=== PATIENT | male | born 1965 | race Caucasian/White ===

== ENCOUNTER 2021-01-27 16:56 | Inpatient (IN) ==
[2021-01-27] MEDS ORDERED: NS 0.9% 1000 ml BAG 1,000 ML IV ONE ×2 (16:57→21:48)
[2021-01-27] MEDS ORDERED: Alteplase (100 mg Vial) 100 mg VIAL ONE (17:03)
[2021-01-27] MEDS ORDERED: Alteplase (100 mg Vial) 100 mg VIAL IV ONE ×2 (17:12)
[2021-01-27 17:13] LABS: ABS Eosinophils 0.1 10^3/ul (0-0.6); ABS Lymphocytes 1.5 10^3/ul (1.0-4.8); ABS Monocytes 0.3 10^3/ul (0-0.8); ABS Neutrophils 2.3 10^3/ul (1.5-7.7); Hematocrit 41 % (42-52); Hemoglobin 13.8 g/dL (14.0-18.0); Lymphocyte % 36.4 %; Mean Corpuscular HGB Conc 34 g/dL (31-36); Mean Corpuscular Hemoglobin 31 pg (27-31); Mean Corpuscular Volume 92 fL (80-94); Mean Platelet Volume 9.7 fL (7.4-10.4); Nucleated Red Blood Cells % 0.1; Platelet Count 115 10^3/uL (150-450); Red Blood Count 4.45 10^6 /uL (4.18-5.48); Red Cell Distribution Width 17 % (10-15); White Blood Count 4.2 10^3/uL (3.5-10.8)
[2021-01-27] MEDS ORDERED: Iodixanol (CONTRAST) 320 MG/ML 100 ML SDV IV ONE (17:17)
[2021-01-27] MEDS ORDERED: niCARdipine 0.1MG/ML IVPREMIX 20 MG/200 ML BAG IV ONE (17:20)
[2021-01-27 17:27] LABS: Activated Partial Thrombo Time 29.1 seconds (26.0-38.0); INR 1.15 (0.86-1.15)
[2021-01-27 17:33] LABS: ALT 23 U/L (7-52); Albumin 4.5 g/dL (3.2-5.2); Albumin/Globulin Ratio 1.7 (1-3); Alkaline Phosphatase 51 U/L (35-149); Blood Urea Nitrogen 17 mg/dL (6-24); CO2 Carbon Dioxide 26 mmol/L (22-32); Calcium 9.3 mg/dL (8.6-10.3); Chloride 106 mmol/L (101-111); Cholesterol 186 mg/dL; Globulin 2.7 g/dL (2-4); Glucose 102 mg/dL (70-100); HDL Cholesterol 43.7 mg/dL; LDL Cholesterol 125 mg/dL; Sodium 138 mmol/L (135-145); Total Protein 7.2 g/dL (6.4-8.9); Triglycerides 87 mg/dL; eGFR CKD-EPI 113.9 (>60)
[2021-01-27 17:34] LABS: Troponin I 0.02 ng/mL (<0.03)
[2021-01-27] MEDS ORDERED: niCARdipine 0.1MG/ML IVPREMIX 20 MG/200 ML BAG IV SCH (18:00)
[2021-01-27 19:01] LABS: Anion Gap 6 mmol/L (2-11)
[2021-01-27 20:28] LABS: Magnesium 1.8 mg/dL (1.9-2.7)
[2021-01-27] MEDS ORDERED: NS 0.9% 500 ml BAG 500 ML IV ONE (20:37)
[2021-01-27] MEDS: NS 0.9% 1000 ml BAG 1,000 ML IV SCH (23:14)
[2021-01-27 23:39] LABS: Phosphorus 3.5 mg/dL (2.5-5.0); Potassium Redraw 4.3 mmol/L (3.5-5.0)
[2021-01-28] MEDS: NS 0.9% 1000 ml BAG 1,000 ML IV SCH ×3 (04:17→14:03)
[2021-01-28 05:16] LABS: ABS Lymphocytes 1.1 10^3/ul (1.0-4.8); ABS Monocytes 0.3 10^3/ul (0-0.8); ABS Neutrophils 3.6 10^3/ul (1.5-7.7); Hematocrit 38 % (42-52); Hemoglobin 13.1 g/dL (14.0-18.0); Lymphocyte % 21.2 %; Mean Corpuscular HGB Conc 34 g/dL (31-36); Mean Corpuscular Hemoglobin 32 pg (27-31); Mean Corpuscular Volume 92 fL (80-94); Mean Platelet Volume 10.1 fL (7.4-10.4); Nucleated Red Blood Cells % 0.2; Platelet Count 108 10^3/uL (150-450); Red Blood Count 4.15 10^6 /uL (4.18-5.48); Red Cell Distribution Width 16 % (10-15)
[2021-01-28 05:38] LABS: Albumin 3.9 g/dL (3.2-5.2); Albumin/Globulin Ratio 1.6 (1-3); Calcium 8.4 mg/dL (8.6-10.3); Globulin 2.5 g/dL (2-4); Magnesium 1.7 mg/dL (1.9-2.7); Phosphorus 2.8 mg/dL (2.5-5.0); Potassium 3.9 mmol/L (3.5-5.0); Total Bilirubin 1.1 mg/dL (0.2-1.0); Total Protein 6.4 g/dL (6.4-8.9); eGFR CKD-EPI 115.1 (>60)
[2021-01-28] MEDS ORDERED: Magnesium Sulfate IV 3 GM in NS 0.9% 100 ml BAG 100 ML IVPB ONE (07:53)
[2021-01-28 08:36] LABS: TSH Ultra Thyroid Stim Horm 1.97 mcIU/mL (0.34-5.60)
[2021-01-29] MEDS: NS 0.9% 1000 ml BAG 1,000 ML IV SCH (00:08)
[2021-01-29] MEDS ORDERED: NS 0.9% 500 ml BAG 500 ML IV ONE (09:10)
[2021-01-29] MEDS ORDERED: fentaNYL 100 mcg/2 ml 50 MCG/ML VIAL ONE (10:09)
[2021-01-29] MEDS ORDERED: Naloxone 0.4 mg VIAL 0.4 mg/ml 1 ml VIAL ONE (10:09)
[2021-01-29] MEDS ORDERED: Midazolam 5 mg/5 ml VIAL 1 mg/ml 5 ml VIAL (5 mg) ONE (10:09)
[2021-01-29] MEDS ORDERED: Flumazenil 0.5 mg/5 ml 0.1 MG/ML 5 ml VIAL ONE (10:09)
[2021-01-29 13:04] LABS: Hematocrit 41 % (42-52); Mean Corpuscular HGB Conc 34 g/dL (31-36); Mean Corpuscular Hemoglobin 31 pg (27-31); Mean Corpuscular Volume 91 fL (80-94); Mean Platelet Volume 9.8 fL (7.4-10.4); Platelet Count 103 10^3/uL (150-450); Red Blood Count 4.49 10^6 /uL (4.18-5.48); Red Cell Distribution Width 17 % (10-15); White Blood Count 4.9 10^3/uL (3.5-10.8)
[2021-01-29 13:20] LABS: Calcium 9.1 mg/dL (8.6-10.3); Potassium 4.2 mmol/L (3.5-5.0); eGFR CKD-EPI 111.1 (>60)
[2021-01-29 17:38] VITALS: BP 112/68
== END 2021-01-29 18:05 | disposition home or self-care (01) | DRG 62 ==
LOC: ED 16:56 → EDHOLD 18:19 → ICU 20:16 → MEDTELE 01-29 04:27
PROVIDERS: ADMIT Student in an Organized Health Care Education/Training Program; ATTEND Student in an Organized Health Care Education/Training Program